=== PATIENT | male | born 1995 | race Caucasian/White ===

== ENCOUNTER 2019-05-28 13:43 | Emergency (ER) | payer OTHER ==
[~2019-05-28] VITALS: Ht 182.9 cm; Wt 70.3 kg
[2019-05-28] MEDS ORDERED: ZOLOFT50 M1 PO (13:51)
[2019-05-28 15:20] VITALS: BP 130/48
== END 2019-05-28 16:00 | disposition home or self-care (01) ==
LOC: ER 13:43
DX: S93.402A Sprain of unspecified ligament of left ankle, initial encounter (principal); M25.562 Pain in left knee; F32.9 Major depressive disorder, single episode, unspecified; V00.138A Other skateboard accident, initial encounter; Y93.89 Activity, other specified; Y92.89 Other specified places as the place of occurrence of the external cause; Y99.8 Other external cause status